=== PATIENT | male | born 2000 | race African-American/Black ===

== ENCOUNTER 2024-01-20 19:49 | Emergency (ER) | payer BC ==
[2024-01-20 19:57] VITALS: BP 131/83; PULSE 74; RESP 18; TEMP 98.5; BMI 23.1
[2024-01-20] MEDS ORDERED: IBUPROFEN 400 MG TABLET (FP) PO ONE (21:10)
[2024-01-20] MEDS: IBUPROFEN 400 MG TABLET (FP) PO ONE (21:12)
[2024-01-20 21:17] LABS: BASO % 0.3 % (0-2.0); EOS % 1.7 % (0-4.5); HEMOGLOBIN 14.6 GM/dL (11.7-16.9); LYMPH % 42.8 % (8-40); MCH 30.2 pg (25.7-33.7); MCHC 34.6 g/dl (32.0-35.9); MEAN CELL VOLUME 87.3 fl (80-96); MEAN PLT VOLUME 8.2 fl (7.5-11.1); NEUT % 47.2 % (42.8-82.8); PLATELET COUNT 191 10^3/uL (134-434); RBC 4.81 M/mm3 (4.00-5.60); RDW 13.7 % (11.9-15.9); WHITE BLOOD COUNT 7.7 K/mm3 (4.0-10.0)
[2024-01-20 21:47] LABS: POTASSIUM 4.1 mmol/L (3.5-5.1)
[2024-01-20 21:49] LABS: CALCIUM 9.3 mg/dL (8.5-10.1)
[2024-01-20 21:50] LABS: ALBUMIN 4.2 g/dl (3.4-5.0); BLOOD UREA NITROGEN 12.3 mg/dL (7-18)
[2024-01-20 21:55] LABS: BILIRUBIN,TOTAL 0.7 mg/dL (0.2-1); TOT PROT 7.3 g/dl (6.4-8.2)
== END 2024-01-20 21:58 | disposition home or self-care (01) ==
LOC: JER 19:49
DX: M94.0 Chondrocostal junction syndrome [Tietze] (principal)
CPT/HCPCS: 36415; 71046-TC-FY; 80053; 84484; 85025; 93005; 93010; 99285-25

== ENCOUNTER 2024-02-11 20:46 | Emergency (ER) | payer BC ==
[2024-02-11 20:56] VITALS: BP 133/84; PULSE 83; RESP 16; TEMP 98.8; BMI 23.1
[2024-02-11] MEDS ORDERED: ACETAMINOPHEN 325 MG TABLET (FP) ONE (21:39)
[2024-02-11] MEDS ORDERED: IBUPROFEN 400 MG TABLET (FP) PO ONE (21:39)
[2024-02-11] MEDS: IBUPROFEN 400 MG TABLET (FP) PO ONE (21:41)
[2024-02-11] MEDS: ACETAMINOPHEN 325 MG TABLET (FP) PO ONE (21:41)
== END 2024-02-12 00:17 | disposition home or self-care (01) ==
LOC: JER 20:46
DX: M25.572 Pain in left ankle and joints of left foot (principal); X50.9XXA Other and unspecified overexertion or strenuous movements or postures, initial encounter; Y93.66 Activity, soccer
CPT/HCPCS: 73610-TC-LT-FY; 73630-TC-LT; 99283-25